=== PATIENT | male | born 1965 | race African-American/Black ===

== ENCOUNTER 2017-06-30 11:25 | Emergency (ER) | payer MEDICAID ==
[~2017-06-30] VITALS: Ht 162.6 cm; Wt 54.5 kg
[2017-06-30 12:21] VITALS: BP 148/105
[2017-06-30] MEDS ORDERED: IBUPROFEN 800 MG TABLET PO ONE (13:00)
== END 2017-06-30 13:02 | disposition home or self-care (01) ==
LOC: EMS 11:31
DX: L03.113 Cellulitis of right upper limb (principal); B07.9 Viral wart, unspecified; F17.210 Nicotine dependence, cigarettes, uncomplicated
CPT/HCPCS: 99283